=== PATIENT | female | born 1970 | race Two or more races ===

== ENCOUNTER 2018-04-20 13:28 | Inpatient (IN) ==
[2018-04-21 05:53] VITALS: BP 112/59; PULSE 70; TEMP 98.4; O2SAT 98
[2018-04-21 06:04] VITALS: RESP 16
--- NOTE | 2018-04-21 14:35 | P.CON ---
History of Present Illness Service: Hospitalist Consult date: 04/21/18 Requesting Physician: Nirav Green Reason for Consult: Assist with medical management Primary Care Provider: UNKNOWN Chief Complaint: I felt shaky History of Present Illness: This is a 47-year-old Romanian-speaking only female who was admitted to inpatient psychiatric unit as a transfer from [facility] for depressive disorder. Hospitalist services have been consulted to assist with medical management. While patient was at [facility] she was started on methimazole for new diagnosis of hyperthyroidism with TSH of less than 0.01 and free T4 of 3.34. Patient seen and examined. Translation line used to communicate with patient Via official court interpreter. Patient denies any acute medical complaints. She states she feels well and she is hoping that she can go home. Patient states that she went to the hospital initially because she was feeling anxious and shaky. Discussed with patient abnormal lab studies , symptoms of hyperthyroidism and treatment with methimazole. Patient denies any heart palpitations or diaphoresis but does report she has had unintentional weight loss. Patient stated that she had been given that information while she was at the previous facility. Patient denies any fever or chills. She denies any chest pain or shortness of breath. She denies any nausea, vomiting or abdominal pain. Review of Systems All other systems reviewed negative except as stated in HPI PMFSH - History History Provided By: Patient - Medical History Medical History: Medical History (Last Updated 04/21/18 @ 14:31 by Kristina Hanson) Hyperthyroidism - Surgical History Surgical History: Surgical History (Last Updated 04/21/18 @ 14:32 by Kristina Hanson) History of - Family History Family History: Family History (Last Updated 04/21/18 @ 14:32 by Kristina Hanson) Other No significant family history - Tobacco History Second Hand Smoke Exposure: No Tobacco Use In Past 30 Days: No Smoking Status: Never smoker - Alcohol History How Often Do You Have a Drink Containing Alcohol: Never - Substance Use History Substance History: No History of Abuse - Travel History Recent Travel in the [place] Within the Last 8 Weeks: No Recent Travel Out of the Country Within the Last 8 Weeks: No - Immunization History Tetanus Immunization: Unsure Hx Influenza Vaccine This Season: No Medications and Allergies Allergies Allergy/AdvReac Type Severity Reaction Status Date / Time No Known Allergies Allergy Verified 04/20/18 13:37 Physical Exam Vital signs: Vital Signs 04/21/18 05:52 04/21/18 06:02 Temperature 98.4 F 98.4 F Pulse Rate 70 70 Respiratory Rate 18 16 Blood Pressure 112/59 L 112/59 L Pulse Oximetry 98 98 Intake & Output 04/20/18 04/21/18 04/21/18 18:59 06:59 18:59 Intake Total 360 / 360 Balance 360 / 360 Weight 83 kg Intake: Oral 360 / 360 Other: Weight On Admission 79 kg Narrative: GENERAL: Well-developed well-nourished middle-aged female, not in any acute distress. Awake and alert. SKIN: Warm and dry. HEAD: Atraumatic. Normocephalic. EYES: Pupils equal and round. No scleral icterus. No injection or drainage. ENT: No nasal bleeding or discharge. Mucous membranes pink and moist. NECK: Trachea midline. CARDIOVASCULAR: Regular rate and rhythm. RESPIRATORY: No accessory muscle use. Clear to auscultation. Breath sounds equal bilaterally. GASTROINTESTINAL: Abdomen soft, non-tender, nondistended. Hepatic and splenic margins not palpable. MUSCULOSKELETAL: Extremities without clubbing, cyanosis, or edema. No obvious deformities. NEUROLOGICAL: Awake and alert. No obvious cranial nerve deficits. Motor grossly within normal limits. Able to move all extremities spontaneously. No focal neurologic findings appreciated.. Normal speech. PSYCHIATRIC: Appropriate mood and affect. Calm and cooperative. Assessment and Plan - Plan 47-year-old female admitted to inpatient psychiatry for depression Depression -Management per psychiatric Hyperthyroidism -We will continue patient on methimazole started at previous facility -Recommended patient follow-up with PCP as an outpatient DVT prophylaxis -Patient is ambulatory
--- NOTE | 2018-04-21 14:38 | P.HPPSY ---
Provisional Diagnosis Admission Date: April 20, 2018 14:46 [place] I.: Adjustment disorder with depressed mood and anxiety Competence Certification of Person's Competence To Provide Express and Informed Consent I have personally examined Edie Nance, a person being served at [facility] on, April 21, 2018 1430. Express and informed consent means consent voluntarily given in writing, by a competent person, after sufficient explanation and disclosure of the subject matter involved to enable the person to make a knowing and willful decision without any element of force, fraud, deceit, duress, or other form of constraint or coercion. This person is 18 years of age or older, is not now known to be incompetent to consent to treatment with a guardian advocate, and does not have a health care surrogate or proxy currently making medical treatment decisions. I have found this person to be one of the following: [x] Competent to provide express and informed consent, as defined above, for voluntary admission to this facility and is competent to provide express and informed consent for treatment. He/she has the consistent capacity to make well reasoned, willful, and knowing decisions concerning his or her medical or mental health treatment. The person fully and consistently understands the purpose of the admission for examination/placement and is fully capable of personally exercising all rights assured under [place] Incompetent to provide express and informed consent to voluntary admission, and this is incompetent to provide express and informed consent to treatment. The person must be transferred to involuntary status and a petition for a guardian advocate filed with the Circuit Court. [] Refusing to provide express and informed consent to voluntary admission but is competent to provide express and informed consent for treatment. The person must be discharged or transferred to involuntary status. Form shall be completed within 24 hours of a person's arrival at the receiving facility and filed in the clinical record of each person: 1. Admitted on a voluntary basis 2. Permitted to provide express and informed consent to his/her own treatment 3. Allowed to transfer from involuntary to voluntary status 4. Prior to permitting a person to consent to his or her own treatment after having been previously found incompetent to consent to treatment. History of Present Illness Capacity: Has capacity History of Present Illness: The patient is a 47-year-old Georgian woman, just Grenadian-speaker domiciled in [place], mother of 4 kids, , in a relationship, employed, without no previous psychiatric history, no previous suicide attempts, no previous psychiatric hospitalizations, she denies use of alcohol and illegal drugs, no significant medical history, who was brought on the [place] act to [place], transferred from [facility], with depression and suicidal ideation. Chart was reviewed. This is the first time that the patient is at [place]. Collateral information from her daughter Anastasia Rodriguez, , was obtained. On psychiatric evaluation today the patient is calm, cooperative, very pleasant. The patient reported that she is here for misunderstood. The patient says that she went to the hospital because she was feeling very anxious and distressed after having an argument with her boyfriend. She wanted to get some prescription for anxiety, she was given an [place] survey for depression, she answered that she has been suicidal in the past and she also has heard voices in the past, but no at this moment. He says that she was Snyder acted for this. While she has been in the hospital she has already spoken with her boyfriend, which is the already made peace, "but, I am still here, I do not understand". The patient denies a dermatology of depression, denies anhedonia, denies hopelessness, denies helplessness, denies worthlessness, denies burning with appetite, with sleep, she denies suicidal enemas ideation, she denies visual and auditory hallucinations. The patient is logical, coherent and relevant. No loosening of associations, no ideas of reference, no paranoia, no agitation or aggressive behavior present. She is oriented 3 her daughter states he states that this was really a misunderstood, she is ready to come and knot picker cloth her mother and take her back home. She describes her mother as a very hard working person, her boyfriend has been giving her hard time, she has being anxious, but she does not need to be admitted in psychiatry. The patient does not have any previous psychiatric history, no previous suicide attempts, no previous hospitalization No significant medical history No family psychiatric history Patient denies use of alcohol, illegal drugs, The patient was born and raised in [place], she lives in [place], she is , she is in a relationship, she has 6 kids, employed selling [employer], her highest level of education is third grade - Inpatient Certification I certify that the inpatient services were ordered in accordance with Medicare regulations governing the order. This includes certification that hospital inpatient services are reasonable and necessary and in the case of services not specified as inpatient-only under 42 CFR 419.22(n), that they are appropriately provided as inpatient services in accordance to with the 2-midnight benchmark under 43 CFR 412.3(e) I certify that inpatient psychiatric hospital services are medically necessary. Evaluation and treatment and/or diagnostic testing are expected to improve the patient's condition. The patient needs on a daily basis, active treatment furnished directly by or requiring the supervision of inpatient psychiatric facility personnel. Review of Systems All other systems reviewed negative except as stated in HPI PMFSH - History History Provided By: Patient - Tobacco History Second Hand Smoke Exposure: No Tobacco Use In Past 30 Days: No Smoking Status: Never smoker - Alcohol History How Often Do You Have a Drink Containing Alcohol: Never - Substance Use History Substance History: No History of Abuse - Travel History Recent Travel in the [place] Within the Last 8 Weeks: No Recent Travel Out of the Country Within the Last 8 Weeks: No - Immunization History Tetanus Immunization: Unsure Hx Influenza Vaccine This Season: No Medications and Allergies Allergies Allergy/AdvReac Type Severity Reaction Status Date / Time No Known Allergies Allergy Verified 04/20/18 13:37 Exam Vital signs: Vital Signs 04/21/18 05:52 04/21/18 06:02 Temperature 98.4 F 98.4 F Pulse Rate 70 70 Respiratory Rate 18 16 Blood Pressure 112/59 L 112/59 L Pulse Oximetry 98 98 Intake & Output 04/20/18 04/21/18 04/21/18 18:59 06:59 18:59 Intake Total 360 / 360 Balance 360 / 360 Weight 83 kg Intake: Oral 360 / 360 Other: Weight On Admission 79 kg Narrative: No tremors, no EPS, no psychomotor agitation retardation, no gait disturbance - Constitutional no acute distress - Routine HEENT Exam Head: Present: normocephalic Eye: Present: EOMI, PERRL ENT: Present: mucous membranes moist Assessment and Plan - Plan Plan: Estimated LOS: [] days No admission is indicated. Justification for Continued Inpatient Stay: On psychiatric evaluation today the patient does not present any neuropsychiatric symptoms or require an immediate psychiatric intervention. The patient denies suicidal ideation, denies homicidal ideation, denies visual and auditory hallucinations. The patient does not present any acute, concerning or significant symptomatology of depression, anxiety, murali and psychosis at the moment. This patient does not meet criteria for involuntary psychiatric admission at the moment. Her recent anxiety was related with breakup with boyfriend, and going to prescribe her hydroxyzine 25 mg every 8 hours as needed anxiety, will give her a prescription for 1 month. She will be discharged back home with her daughter. We will be give an appointment for follow-up in [facility].
--- NOTE | 2018-04-21 15:05 | P.DIET ---
Nutritional Evaluation Type of nutrition evaluation: initial Nutrition screening: Weight Loss > 10 lbs Screening comments: Appetite is poor. 15-lb wt loss in 3-weeks Subjective Subjective Comments: po intake 100% for breakfast today Objective - Diagnosis Depressive DO - Objective [place] body weight: 53.3 kg % IBW: 151 Body Weight Used for Calculations: IBW Energy Needs - Lower Range (kCal/kg): 28 Energy Needs - Upper Range (kCal/kg): 33 Lower Limit kCal/kg (kCals): 1,492 Upper Limit kCal/kg (kCals): 1,759 Lower Limit Protein Factor (Grams per Kg): 1.2 Upper Limit Protein Factor (Grams per Kg): 1.4 Lower Protein Needs (Protein): 64 Upper Protein Needs (Protein): 75 Dietitian Reviewed in Medical Record: Current diet, Curent medications, Intake & Output, Labs, Medical history Diet Order: Regular Objective Comments: PMH: hypothyroidism Assessment Assessment: Pt is at nutritional risk r/t recent unintentional wt loss. Adequate po intake 50% or greater for meal taken here. Send Ensure bid for additional nutrition(= 250 kcal and 9g Protein per serving). Dietitian will follow. Recommendations: 1. Send Ensure bid for additional nutrition 2. Dietitian will follow Dietitian to Monitor: Lab values, Supplement acceptance, Intake & Output, Weight change, PO Intake
== END 2018-04-21 16:50 | disposition home or self-care (01) ==
LOC: H260 14:46
PROVIDERS: ADMIT Psychiatry & Neurology Psychiatry; ATTEND Psychiatry & Neurology Psychiatry